=== PATIENT | male | born 1965 | race Caucasian/White ===

== ENCOUNTER 2020-06-24 09:54 | Emergency (ER) | payer MEDICARE, OTHER ==
[2020-06-24 11:48] LABS: BASOPHIL 0.8 % (0-2); EOSINOPHIL 5.9 % (0-5); HCT 46.4 % (42.0-52.0); HGB 15.9 g/dl (13.2-18.0); LYMPHOCYTE 46.2 % (15-48); MCH 29.9 pg (25.0-31.0); MCHC 34.3 g/dL (32.0-36.0); MCV 87.2 fL (78.0-100.0); MONOCYTE 7.2 % (0-12); NEUTROPHIL 39.7 % (41-80); NRBC 0; PLT 228 K/uL (150-400); RBC 5.32 M/uL (4.70-6.00); RDW 13.2 % (11.5-14.0)
[2020-06-24 12:53] LABS: ALBUMIN 3.8 g/dL (3.4-5.0); BILIRUBIN - TOTAL 0.4 mg/dL (0.2-1.0); BUN/CREAT RATIO (CALC) 12.4 RATIO; CREATININE 0.89 mg/dL (0.67-1.17); GLOBULIN (CALCULATION) 3.7 g/dL; POTASSIUM 4.7 mmol/L (3.5-5.1); TOTAL PROTEIN 7.5 g/dL (6.4-8.2)
== END 2020-06-24 15:26 | disposition home or self-care (01) ==
LOC: FER 09:54
PROVIDERS: Emergency Medicine
DX: R09.1 Pleurisy (principal); J44.9 Chronic obstructive pulmonary disease, unspecified; F17.200 Nicotine dependence, unspecified, uncomplicated
CPT/HCPCS: 36415; 71045; 71275; 80053; 84484; 85025; 85379; 93005; Q9967

== ENCOUNTER → 2021-06-23 | Day surgery (SDC) | payer MEDICARE, OTHER ==
[~2021-06-23] VITALS: Ht 170.2 cm; Wt 68.0 kg
[~2021-06-23] MED LIST: CYMBALTA60 MG PO; DULOXETINE HCL30 MG PO; GABAPENTIN800 MG PO; NEURONTIN300 MG PO; STIOLTO RESPIMAT 2.5 INH; VENTOLIN HFA IN18 GM INH; VOLTAREN ARTHRI20 GM TOP
[2021-06-23 07:18] LABS: HCT 47.7 % (42.0-52.0); HGB 15.8 g/dl (13.2-18.0); MCH 28.6 pg (25.0-31.0); MCHC 33.1 g/dL (32.0-36.0); MCV 86.4 fL (78.0-100.0); MPV 8.8 fL (6.0-9.5); RBC 5.52 M/uL (4.70-6.00); RDW 12.9 % (11.5-14.0); WBC 7.1 K/uL (4.0-10.5)
[2021-06-23 07:54] LABS: ALBUMIN 3.6 g/dL (3.4-5.0); BILIRUBIN - TOTAL 0.6 mg/dL (0.2-1.0); BUN/CREAT RATIO (CALC) 8.7 RATIO; CREATININE 0.92 mg/dL (0.67-1.17); POTASSIUM 4.6 mmol/L (3.5-5.1); TOTAL PROTEIN 7.6 g/dL (6.4-8.2)
== END | disposition home or self-care (01) ==
LOC: FAS 06-22 12:30
PROVIDERS: Orthopaedic Surgery
DX: G56.03 Carpal tunnel syndrome, bilateral upper limbs (principal); G56.23 Lesion of ulnar nerve, bilateral upper limbs; F17.200 Nicotine dependence, unspecified, uncomplicated; J44.9 Chronic obstructive pulmonary disease, unspecified; E78.00 Pure hypercholesterolemia, unspecified; Z79.899 Other long term (current) drug therapy
CPT/HCPCS: 36415; 71045; 80053; 93005; J0690; J1885; J2250; J2704; J3010; J7120

== ENCOUNTER → 2021-07-21 | Day surgery (SDC) | payer MEDICARE, OTHER ==
[~2021-07-21] VITALS: Ht 170.2 cm; Wt 68.0 kg
== END | disposition home or self-care (01) ==
LOC: FAS 06:44
DX: Z12.11 Encounter for screening for malignant neoplasm of colon (principal); K63.5 Polyp of colon; K62.1 Rectal polyp; G89.29 Other chronic pain; M54.9 Dorsalgia, unspecified; F17.200 Nicotine dependence, unspecified, uncomplicated; J44.9 Chronic obstructive pulmonary disease, unspecified; E78.00 Pure hypercholesterolemia, unspecified; I10 Essential (primary) hypertension; I25.2 Old myocardial infarction; Z90.49 Acquired absence of other specified parts of digestive tract; Z86.010 Personal history of colon polyps; Z98.0 Intestinal bypass and anastomosis status; Z86.73 Personal history of transient ischemic attack (TIA), and cerebral infarction without residual deficits
CPT/HCPCS: J2704; J7120